=== PATIENT | female | born 2005 | race Caucasian/White ===

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

== ENCOUNTER 2025-04-23 21:11 | Emergency (ER) | payer SELFPAY ==
[2025-04-23 22:17] LABS: BASOPHILS PERCENT AUTO 0.1 % (0.0-1.0); EOSINOPHILS PERCENT AUTO 1.6 % (1.0-3.0); LYMPHOCYTES PERCENT AUTO 13.7 % (20.5-50.1); MONOCYTES PERCENT AUTO 11.1 % (2-8); NEUTROPHILS PERCENT AUTO 73.5 % (42.2-75.2); PLATELET COUNT,PLT 216 10^3/uL (150-450); RED BLOOD CELL COUNT 4.70 10^6/uL (4.2-5.4); WHITE BLOOD CELL COUNT,WBC 14.0 10^3/uL (5.0-10.0)
[2025-04-23 22:51] LABS: APPEARANCE,URINE TURBID (CLEAR); GLUCOSE,URINE NEGATIVE (NEGATIVE); OCCULT BLOOD,URINE SMALL (NEGATIVE)
[2025-04-23 23:00] LABS: INR 0.9 (0.9-1.2); PTT,PARTIAL THROMBOPLSTIN TIME 24.7 SEC (22.0-34.0)
[2025-04-23 23:03] LABS: A/G RATIO 0.9; ALANINE AMINOTRANSFERASE,ALT 21.0 U/L (14-59); ASPARTATE AMNIOTRANSFERASE,AST 9.0 U/L (15-37); BILIRUBIN TOTAL 0.3 mg/dL (0.2-1.0); BLOOD UREA NITROGEN,BUN 13.0 mg/dL (7-18); CARBON DIOXIDE,CO2 30.0 mmol/L (21-32); CHLORIDE,CL 100.0 mmol/L (98-107); CREATININE 0.85 mg/dL (0.55-1.02); EST CRCL DRUG DOSING (CG) 102.67 mL/min; GLUCOSE RANDOM 89.0 mg/dL (70-99); POTASSIUM,K 4.2 mmol/L (3.5-5.1); PROTEIN TOTAL,TP 7.8 g/dL (6.4-8.2); SODIUM,NA 138.0 mmol/L (136-145)
[2025-04-23 23:06] LABS: LACTIC ACID 1.5 mmol/L (0.4-2.0)
[2025-04-23 23:11] LABS: ESTIMATED GFR 101.0 mL/min (>=60)
[2025-04-23 23:16] LABS: EPITHELIAL CELLS,URINE MODERATE /HPF (NOT SEEN)
[2025-04-23 23:17] LABS: TRIPLE PHOSPHATE CRYSTALS,UR FEW /HPF (NOT SEEN)
[2025-04-23] MEDS: Iopamidol 612 MG/ML 100 ML Bottle IVPUSH ONE (23:24)
[2025-04-23] MEDS ORDERED: Sodium Chloride 0.9% 10 ML Syringe FLUSH PRN (23:24)
[2025-04-24] MEDS: Take Home: Levofloxacin 500 MG Tab, 3 Tab Pack PO ONE (01:26)
== END 2025-04-24 01:30 | disposition home or self-care (01) ==
LOC: DL.ED 21:11
DX: N10 Acute pyelonephritis (principal); N30.00 Acute cystitis without hematuria; K59.00 Constipation, unspecified; E66.9 Obesity, unspecified; Z68.45 Body mass index [BMI] 70 or greater, adult
CPT/HCPCS: 36415; 74177; 80053; 81001; 81025; 83605; 83690; 85025; 85610; 85730; 86140; 87086; 87088; 87186; 99284; A9270-GY; Q9967